=== PATIENT | male | born 1985 | race Caucasian/White ===

== ENCOUNTER 2017-11-09 22:28 | Emergency (ER) | payer SELFPAY ==
[~2017-11-09] VITALS: Ht 180.3 cm; Wt 68.0 kg
--- NOTE | 2017-11-09 23:21 | NUR ---
Patient left without being seen by ER physician.
--- NOTE | 2017-11-10 01:13 | NUR ---
Patient discharged to home in stable conditon. Written and verbal after care instructions given. Patient verbalizes understanding of instructions.
== END 2017-11-09 23:23 | disposition left against medical advice (07) ==
LOC: ER 22:29
DX: S61.214A Laceration without foreign body of right ring finger without damage to nail, initial encounter (principal); Z88.7 Allergy status to serum and vaccine; W26.8XXA Contact with other sharp object(s), not elsewhere classified, initial encounter; Y92.89 Other specified places as the place of occurrence of the external cause; Y93.89 Activity, other specified; Y99.8 Other external cause status
CPT/HCPCS: 73140; A4663

== ENCOUNTER 2017-11-12 21:49 | Emergency (ER) | payer SELFPAY ==
[~2017-11-12] VITALS: Ht 180.3 cm; Wt 76.7 kg
--- NOTE | 2017-11-12 23:26 | NUR ---
Patient discharged to home in stable conditon. Written and verbal after care instructions given. Patient verbalizes understanding of instructions.
== END 2017-11-12 23:55 | disposition home or self-care (01) ==
LOC: ER 21:50
DX: S61.214D Laceration without foreign body of right ring finger without damage to nail, subsequent encounter (principal); X58.XXXD Exposure to other specified factors, subsequent encounter
CPT/HCPCS: 99281; A4663